=== PATIENT | male | born 1940 | race Caucasian/White ===

== ENCOUNTER 2022-04-01 14:27 | Emergency (ER) | payer MEDICARE ==
[~2022-04-01] VITALS: Ht 172.7 cm; Wt 75.0 kg
[2022-04-01] MEDS ORDERED: CEPHALEXIN 500 MG CAP PO ONE (17:00)
[2022-04-01] MEDS ORDERED: CEPH500C PO (17:11)
[2022-04-01 17:43] VITALS: BP 132/82
== END 2022-04-01 22:20 | disposition home or self-care (01) ==
LOC: M ED 14:27
DX: S81.802A Unspecified open wound, left lower leg, initial encounter (principal); L03.116 Cellulitis of left lower limb; W22.8XXA Striking against or struck by other objects, initial encounter; I10 Essential (primary) hypertension; I48.91 Unspecified atrial fibrillation; M19.90 Unspecified osteoarthritis, unspecified site; J44.9 Chronic obstructive pulmonary disease, unspecified; Z85.46 Personal history of malignant neoplasm of prostate

== ENCOUNTER 2022-12-20 08:58 | Day surgery (SDC) | payer MEDICARE ==
[~2022-12-20] VITALS: Ht 172.7 cm; Wt 74.4 kg
[~2022-12-20 08:58] MED LIST: ASPI81TA26 PO; CEPH500C PO; DRON400T PO; GABA-282 PO; OLME5TAB27 PO; VITMTA PO; ZETI10TA16 PO; ceFAZolin SOD 2 GM in IV 1 EA IV ONE
[2022-12-20] MEDS ORDERED: LR 1,000 ML IV SCH ×2 (09:15→11:55)
[2022-12-20] MEDS ORDERED: fentaNYL 250 MCG/5 ML INJECTION As Ordered ONE (09:53)
[2022-12-20] MEDS ORDERED: KETOROLAC 60MG 2ML VIAL As Ordered ONE (09:53)
[2022-12-20] MEDS ORDERED: LIDOCAINE 2% 100MG/5ML SDV (FOR ANES.) As Ordered ONE (09:54)
[2022-12-20] MEDS ORDERED: ONDANSETRON 4MG 2ML VIAL As Ordered ONE (09:54)
[2022-12-20] MEDS ORDERED: ROCURONIUM BROMIDE 50MG/5ML VIAL As Ordered ONE ×2 (09:54→11:40)
[2022-12-20] MEDS ORDERED: propofoL 200 MG/20 ML VIAL As Ordered ONE (09:54)
[2022-12-20] MEDS ORDERED: ACETAMINOPHEN 1000MG 100ML IV BAG As Ordered ONE (10:44)
[2022-12-20] MEDS ORDERED: GLYCOPYRROLATE INJ 0.2 MG/ML 2 ML VIAL As Ordered ONE (10:56)
[2022-12-20] MEDS ORDERED: SUGAMMADEX SODIUM 500 MG/5 ML VIAL (BRIDION) As Ordered ONE (11:20)
[2022-12-20] MEDS ORDERED: fentaNYL 100 MCG/2 ML INJECTION IV PRN (11:55)
[2022-12-20] MEDS ORDERED: ONDANSETRON 4MG 2ML VIAL IV PRN (11:55)
[2022-12-20] MEDS: oxyCODONE 5MG TAB PO PRN ×3 (12:18→13:05)
[2022-12-20] MEDS ORDERED: NORCO, ANEXSIA 5/325MG TABLET (HYDROcodone/ACETAMINOPHEN) PO PRN (12:45)
[2022-12-20 13:43] VITALS: BP 152/86; TEMP 97.1; O2SAT 97
== END 2022-12-20 14:24 | disposition home or self-care (01) ==
LOC: M SDC 08:58
PROVIDERS: ATTEND Surgery
DX: K40.90 Unilateral inguinal hernia, without obstruction or gangrene, not specified as recurrent (principal); I48.91 Unspecified atrial fibrillation; Z98.61 Coronary angioplasty status; I25.10 Atherosclerotic heart disease of native coronary artery without angina pectoris; I25.2 Old myocardial infarction; Z79.82 Long term (current) use of aspirin; Z79.899 Other long term (current) drug therapy; I10 Essential (primary) hypertension; E78.5 Hyperlipidemia, unspecified
CPT/HCPCS: 49650; C1781; J0131; J0690; J1100; J1885; J2405; J3010; S2900

== ENCOUNTER → 2025-02-23 | Outpatient (CLI) | payer MEDICARE ==
[~2025-02-23] MED LIST changes: +EZET10TA58 PO; +GABA-1172 PO; -GABA-282 PO; -ZETI10TA16 PO; -ceFAZolin SOD 2 GM in IV 1 EA IV ONE
== END ==
LOC: M WUC 09:04
PROVIDERS: ATTEND Student in an Organized Health Care Education/Training Program
DX: S20.211A Contusion of right front wall of thorax, initial encounter (principal); X58.XXXA Exposure to other specified factors, initial encounter; Y92.9 Unspecified place or not applicable; Y93.9 Activity, unspecified; Y99.9 Unspecified external cause status